=== PATIENT | male | born 1965 | race Caucasian/White ===

== ENCOUNTER 2017-01-30 22:21 | Emergency (ER) | payer OTHER ==
[~2017-01-30] VITALS: Ht 182.9 cm; Wt 88.5 kg
[2017-01-30] MEDS ORDERED: SING10TA32 PO (22:30)
[2017-01-30] MEDS ORDERED: SIMV20TA2 PO (22:30)
[2017-01-30] MEDS ORDERED: NIZA150C4 PO (22:30)
[2017-01-30 23:48] LABS: ALBUMIN 3.7 GM/DL (3.2-5.2); ALBUMIN/GLOBULIN RATIO 1.19 (1.00-1.93); ALKALINE PHOSPHATASE 80 U/L (45-117); ALT/SGPT 34 U/L (12-78); ANION GAP 6 MEQ/L (8-16); AST/SGOT 17 U/L (15-37); BILIRUBIN,TOTAL 1.1 MG/DL (0.2-1.0); BLOOD UREA NITROGEN 19 MG/DL (7-18); CALCIUM LEVEL 9.1 MG/DL (8.5-10.1); CARBON DIOXIDE LEVEL 32 MEQ/L (21-32); CHLORIDE LEVEL 107 MEQ/L (98-107); CREATININE FOR GFR 1.06 MG/DL (0.70-1.30); GLOMERULAR FILTRATION RATE > 60.0 (>56); GLUCOSE, FASTING 110 MG/DL (70-105); POTASSIUM SERUM 3.8 MEQ/L (3.5-5.1); SODIUM LEVEL 145 MEQ/L (136-145); TOTAL PROTEIN 6.8 GM/DL (6.4-8.2)
[2017-01-30 23:51] LABS: CONTROL LINE INT CTR LINE PRESENT; HIV SCRN NEGATIVE (NEGATIVE); HIV SCRN1 NEGATIVE (NEGATIVE)
[2017-01-30 23:52] LABS: BASO % 0.5 % (0.0-1.0); EOS # 0.2 K/mm3 (0.0-0.50); LARGE UNSTAINED CELL # 0.2 K/mm3 (0.0-0.4); LARGE UNSTAINED CELL % 2.2 % (0.0-4.0); LYMPH # 2.5 K/mm3 (1.5-4.5); LYMPH % 32.3 % (24.0-44.0); MEAN CORPUSCULAR HEMOGLOBIN 29.8 pg (27.0-33.0); MEAN CORPUSCULAR HGB CONC 34.9 g/dl (32.0-36.5); MEAN CORPUSCULAR VOLUME 85.3 fl (80.0-96.0); MONO # 0.5 K/mm3 (0.0-0.8); MONO % 7.4 % (0.0-5.0); NEUTROPHILS % 55.5 % (36.0-66.0); PLATELET COUNT, AUTOMATED 199 k/mm3 (150-450); RED CELL DISTRIBUTION WIDTH 12.7 % (11.5-14.5); WHITE BLOOD COUNT 7.2 K/mm3 (4.0-10.0)
[2017-01-30 23:57] VITALS: BP 131/71
[2017-01-31 10:08] LABS: HEPATITIS B SURFACE ANTIBODY NEGATIVE (POSITIVE)
== END 2017-01-31 00:17 | disposition home or self-care (01) ==
LOC: M ED 23:15
DX: Z77.21 Contact with and (suspected) exposure to potentially hazardous body fluids (principal); Z79.899 Other long term (current) drug therapy; Z91.013 Allergy to seafood

== ENCOUNTER → 2017-05-02 | Outpatient (REF) | payer OTHER ==
[~2017-05-02] MED LIST: NIZA150C4 PO; SIMV20TA2 PO; SING10TA32 PO
== END ==
LOC: M LAB REF 17:22
PROVIDERS: ATTEND Family Medicine
DX: Z11.59 Encounter for screening for other viral diseases (principal); W46.0XXD Contact with hypodermic needle, subsequent encounter; X58.XXXD Exposure to other specified factors, subsequent encounter; Y93.9 Activity, unspecified; Y92.9 Unspecified place or not applicable; Y99.8 Other external cause status

== ENCOUNTER 2019-12-07 12:40 | Emergency (ER) | payer OTHER ==
[~2019-12-07] VITALS: Ht 182.9 cm; Wt 98.7 kg
[~2019-12-07 12:40] MED LIST changes: -SIMV20TA2 PO; +SIMV20TA22 PO
[2019-12-07] MEDS ORDERED: diphenhydrAMINE 50MG/ML VIAL (J1200) IV ONE (13:00)
[2019-12-07] MEDS ORDERED: methylPREDNISolone INJ 125 MG/2 ML VIAL (J2930) IV ONE (13:00)
[2019-12-07] MEDS ORDERED: FAMOTIDINE INJ 20MG/2ML VIAL (S0028) IVP ONE (13:00)
[2019-12-07] MEDS ORDERED: BENA25TA5 PO (13:14)
[2019-12-07] MEDS ORDERED: CIPR500T3 PO (13:14)
[2019-12-07] MEDS ORDERED: NS 1,000 ML IV ONE (13:15)
[2019-12-07] MEDS ORDERED: PRED20TA PO (15:02)
[2019-12-07] MEDS ORDERED: PEPC1TAB5 PO (15:02)
[2019-12-07] MEDS ORDERED: BENA25CA4 PO (15:03)
[2019-12-07 15:15] VITALS: BP 117/76
== END 2019-12-07 15:28 | disposition home or self-care (01) ==
LOC: M ED 12:40
DX: R22.0 Localized swelling, mass and lump, head (principal); T36.8X5A Adverse effect of other systemic antibiotics, initial encounter; X58.XXXA Exposure to other specified factors, initial encounter; Y92.89 Other specified places as the place of occurrence of the external cause; E78.9 Disorder of lipoprotein metabolism, unspecified; Z79.899 Other long term (current) drug therapy; Z88.1 Allergy status to other antibiotic agents
CPT/HCPCS: 93041; 94760; 96360; 96361; 99291; J1200; J2930

== ENCOUNTER → 2020-04-30 | Outpatient (CLI) | payer OTHER ==
[~2020-04-30] MED LIST changes: +BENA25CA4 PO; +BENA25TA5 PO; +CIPR500T3 PO; +PEPC1TAB5 PO; +PRED20TA PO
--- NOTE | 2020-04-30 16:15 | REPVR ---
PROCEDURE INFORMATION: Exam: MR Lumbar Spine Without Contrast. Exam date and time: 04/30/2020 3:55 PM Age: 54 years old Clinical indication: Low back pain; Additional info: Radiculopathy TECHNIQUE: Imaging protocol: Multiplanar magnetic resonance images of the lumbar spine without intravenous contrast. COMPARISON: No relevant prior studies available. FINDINGS: There is an approximately 0.8 cm round intradural extramedullary solid lesion adjacent to the conus medullaris, suspected mass arising from a cauda equina nerve root. Lumbar vertebral body heights are maintained. No abnormal marrow signal. No cord compression. No abnormal cord signal. Conus medullaris terminates at the L1 level. Paravertebral soft tissues are unremarkable. L1-L2: No significant canal or foraminal narrowing. L2-L3: No significant canal or foraminal narrowing. L3-L4: Broad-based disc bulge causes mild canal narrowing and mild bilateral foraminal narrowing. L4-L5: Broad-based disc bulge causes mild bilateral foraminal narrowing. No significant canal narrowing. L5-S1: Broad-based disc bulge and facet hypertrophy causes mild canal narrowing and [id number] bilateral foraminal narrowing. IMPRESSION: 1. Approximately 0.8 cm round intradural extramedullary solid lesion adjacent to the conus medullaris, suspected mass arising from a cauda equina nerve root. Recommend neurosurgery consultation and further evaluation with postcontrast sequences. 2. Multilevel mild spondylotic changes of the lumbar spine, as above. Electronically signed by: Manuel John On 04/30/2020 16:14:53 PM
== END ==
LOC: M RAD 15:18
PROVIDERS: ATTEND Orthopaedic Surgery Sports Medicine
DX: M54.16 Radiculopathy, lumbar region (principal); M51.26 Other intervertebral disc displacement, lumbar region; M51.27 Other intervertebral disc displacement, lumbosacral region

== ENCOUNTER → 2020-05-26 | Outpatient (RCR) | payer OTHER | LOC: M PT 04-28 07:24 | PROVIDERS: ATTEND Orthopaedic Surgery Sports Medicine | DX: M54.16 Radiculopathy, lumbar region (principal) ==

== ENCOUNTER → 2020-06-16 | Outpatient (CLI) | payer OTHER ==
[~2020-06-16] MED LIST changes: +PROHANCE 279.3MG/ML 15ML VIAL As Ordered ONE; +PROHANCE 279.3MG/ML 5ML VIAL As Ordered ONE
--- NOTE | 2020-06-16 11:55 | REPVR ---
PROCEDURE INFORMATION: Exam: MR Lumbar Spine Without and With Contrast. Exam date and time: 06/16/2020 11:04 AM Age: 54 years old Clinical indication: Pain and screening exam; Low back pain; Patient HX: Possible spinal lesions; Additional info: Radiculopathy lumbar spine ? spine tumors TECHNIQUE: Imaging protocol: Multiplanar magnetic resonance images of the lumbar spine without and with intravenous contrast. Contrast material: PROHANCE; Contrast volume: 18 ml; Contrast route: INTRAVENOUS (IV); COMPARISON: MRI-Spine, L.S. without con 04/30/2020 3:36 PM FINDINGS: Vertebrae: Unremarkable. 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 L1-L2: No significant disc disease. No significant spinal canal stenosis. No neural foraminal stenosis. L2-L3: There is a superimposed right foraminal disc herniation. There is severe right-sided neuroforaminal narrowing. There is facet arthropathy and ligamentum flavum hypertrophy. L3-L4: There is disc desiccation. There is moderate disc bulging. Disc bulging extends into both neural foramen causing moderate bilateral neural foraminal narrowing. There is facet arthropathy and ligamentum flavum hypertrophy. L4-L5: There is disc desiccation. There is a moderate disc bulge with a small superimposed central disc herniation. Disc bulging extends into both neural foramen causing moderate bilateral neural foraminal narrowing, right worse than left. There is facet arthropathy and ligamentum flavum hypertrophy. L5-S1: There is disc space narrowing and desiccation. There are moderate degenerative end plate changes at this level. There is a moderate disc bulge with a moderate superimposed central disc herniation. Disc bulging extends into both neural foramen causing mild bilateral neural foraminal narrowing. There is facet arthropathy and ligamentum flavum hypertrophy. Soft tissues: Unremarkable. IMPRESSION: 1. 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 This has been reported previously. 2. Multilevel degenerative changes causing variable degrees of spinal canal and neuroforaminal narrowing as described above. Electronically signed by: Delta Fulton On 06/16/2020 11:55:03 AM
== END ==
LOC: M RAD 09:46
PROVIDERS: ATTEND Orthopaedic Surgery Sports Medicine
DX: M54.16 Radiculopathy, lumbar region (principal)

== ENCOUNTER → 2023-10-19 | Outpatient (REF) | payer OTHER ==
[~2023-10-19] MED LIST changes: +MONT-5 PO; +NIZA150C10 PO; -NIZA150C4 PO; -PROHANCE 279.3MG/ML 15ML VIAL As Ordered ONE; -PROHANCE 279.3MG/ML 5ML VIAL As Ordered ONE; -SING10TA32 PO
== END ==
LOC: M LAB REF 13:15
PROVIDERS: ATTEND Family Medicine
DX: R68.82 Decreased libido (principal)